=== PATIENT | female | born 1955 | race African-American/Black ===

== ENCOUNTER 2016-08-12 13:37 | Emergency (ER) ==
[2016-08-12 13:53] VITALS: BP 189/73
[2016-08-12] MEDS ORDERED: TYLENOL PO ONE (14:20)
--- NOTE | 2016-08-12 14:24 | PROVIDER DOCUMENTATION ---
Addendum entered and electronically signed by Brie Johnson PA 08/12/16 19 :11: Additional Progress - ADDITIONAL PLAN OF CARE/RESULTS Additional Progress/Plan/Lab Results: Vital Signs Temp Pulse Resp BP Pulse Ox 08/12/16 13:49 100.3 F H 103 H 20 189/73 98 No Known Allergies Allergy (Verified 05/05/16 19:27) Aspirin 81 mg PO DAILY 07/16/13 Digoxin 125 mcg PO DAILY 07/16/13 Lisinopril 10 mg PO DAILY #30 tablet 07/16/13 Metformin HCl [Metformin HCl ER] 750 mg PO DAILY 07/16/13 Diltiazem HCl [Diltiazem ER] 1 cap PO DAILY 01/10/15 Metoprolol [Lopressor] 50 mg PO DAILY 01/10/15 Ondansetron Odt [Zofran 8Mg Odt] 8 mg PO Q8H PRN PRN #20 tablet 08/12/16 Oseltamivir [Tamiflu] 75 mg PO DAILY #10 capsule 08/12/16 Laboratory 08/12/16 13:50 Influenza A (Rapid) POSITIVE A Influenza B (Rapid) NEGATIVE Orders Category Date Time Status CHEST-2 VIEWS [RAD] Stat Exams 08/12/16 14:[address] Stat Lab 08/12/16 13:50 Completed Acetaminophen [Tylenol] Med 08/12/16 14:20 Discontinued 1,000 mg PO NOW ONE Original Note: HPI-General Adult - General Source: patient - History of Present Illness -Gen Adult Nature of Presenting Problems: patient is a 60 y/o F that presents to the ER with 24 hours of fever, cough, sore throat, and body aches. Patient denies n/v/d, earache. Location of Pain/Injury: reports: generalized Pain Radiation: reports: no radiation Quality of Pain: reports: aching Severity: reports: mild, moderate Onset/Duration: reports: gradual, 24 hours ago Timing: reports: still present, getting worse Context/Activities at Onset: reports: none Modifying Factors: improves with: nothing Associated Symptoms: reports: cough, EENT symptoms, fever/chills, muscle aches. denies: diarrhea, nausea, rash, shortness of breath, vomiting Similar Symptoms Previously?: No Recently seen or treated by another doctor?: No <Glen Sandhu - Last Filed: 08/12/16 14:21> <ElizabethBriesha Pritchett - Last Filed: 08/12/16 14:37> - General Chief Complaint: Cold Symptoms Stated Complaint: COLD SX Time Seen by Provider: 08/12/16 14:08 Allergies/Adverse Reactions: Patient Allergies Allergy/AdvReac Type Severity Reaction Status Date / Time No Known Allergies Allergy Verified 05/05/16 19:27 Home Medications: Aspirin 81 mg PO DAILY 07/16/13 Digoxin 125 mcg PO DAILY 07/16/13 Metformin HCl [Metformin HCl ER] 750 mg PO DAILY 07/16/13 Diltiazem HCl [Diltiazem ER] 1 cap PO DAILY 01/10/15 Metoprolol [Lopressor] 50 mg PO DAILY 01/10/15 Review of Systems - Adult - REVIEW OF SYSTEMS - ADULT Constitutional: reports: chills, fever Eyes: denies: decreased vision, blurred vision, double vision Ears, Nose, Mouth & Throat: reports: sinus problem, throat pain. denies: ear pain Cardiovascular: denies: chest pain, orthopnea, palpitations Respiratory: reports: cough. denies: shortness of breath, wheezing Gastrointestinal: denies: abdominal pain, diarrhea, nausea, vomiting Genitourinary: denies: dysuria, frequency, hematuria Musculoskeletal: reports: muscle aches. denies: joint swelling Integumentary: reports: no symptoms reported Neurological: reports: no symptoms reported Psychiatric: reports: no symptoms reported Endocrine: reports: no symptoms reported Hematologic/Lymphatic: reports: no symptoms reported Allergic/Immunologic: reports: no symptoms reported All Other Systems: Reviewed and Negative <Glen Sandhu - Last Filed: 08/12/16 14:21> Past History - Adult - PAST MEDICAL HISTORY-ADULT Review of Records: reports: Old Records Reviewed, Nursing Assessment Review, Medications Reviewed Cardiovascular: reports: arrhythmia, CHF, HTN Gastrointestinal: reports: GERD Endocrine/Immune: reports: Diabetes - PRIOR SURGERIES/PROCEDURES Surgical/Procedure History: reports: hysterectomy (partial) - IMMUNIZATION STATUS Childhood Immunizations: See Nurse Assessment Flu Vaccine: See Nurse Assessment - FAMILY HISTORY Family History: reviewed, not pertinent - SOCIAL HISTORY Smoking: non-smoker Living Situation: family <Glen Sandhu - Last Filed: 08/12/16 14:21> Physical Exam-General - PHYSICAL EXAM-ADULT Initial Vital Signs Reviewed: Yes - CONSTITUTIONAL General Appearance: alert, no apparent distress - EYES Eyes: PERRL/EOMI, pink conjunctivae - HEAD, EARS, NOSE, MOUTH & THROAT HENMT: normocephalic/atraumatic, moist mucous membranes, normal ENT inspection, TMs normal, pharynx normal - NECK Neck: non-tender, full range of motion, normal inspection - RESPIRATORY Respiratory: chest non-tender, lungs clear, normal breath sounds, no respiratory distress, no accessory muscle use - CARDIOVASCULAR Cardiovascular: normal peripheral pulses, regular rate, rhythm, no murmur - GASTROINTESTINAL (ABDOMEN) Abdominal Exam: normal bowel sounds, non tender, soft, no organomegaly, no pulsatile mass - MUSCULOSKELETAL Extremity: normal range of motion, normal inspection, no pedal edema - SKIN Integumentary: normal color, warm/dry - NEUROLOGIC Neurologic: grossly normal, no motor/sensory deficits - PSYCHIATRIC Psych/Mental Status: normal mood/affect, normal thought content, normal thought process, oriented x 3 <Glen Sandhu - Last Filed: 08/12/16 14:21> Departure <Glen Sandhu - Last Filed: 08/12/16 14:21> - Departure Time of Disposition Order: 14:36 Certified Medical Emergency: Emergent <Brie Johnson - Last Filed: 08/12/16 14:37> - Departure DIAGNOSIS: Influenza A Disposition: HOME 01 Condition: Stable Additional Instructions: Tylenol and motrin for pain and fever ED Follow Up Instructions: You have been treated by a care provider in the Emergency Department. These instructions are being provided to you so you can have an understanding of how to care for yourself upon discharge. Upon discharge from the Emergency Department, you are responsible for making arrangements for follow-up care by a physician of your choice. Take all prescribed medications as directed. Return to the Emergency Department immediately for any new or worsening symptoms. You may call the Physician Referral phone number at [phone] to obtain a list of Physicians who are taking new patients. Prescriptions: Oseltamivir [Tamiflu] 75 mg PO DAILY #10 capsule Ondansetron Odt [Zofran 8Mg Odt] 8 mg PO Q8H PRN PRN #20 tablet PRN Reason: Nausea Attestation - Scribe Verification/Attestation Scribe:: Glen Sandhu Acting as Scribe for:: Brie Johnson Scribe documention review:: This chart was documented by a scribe and accurately reflects the service the provider performed and the decisions made by the provider. - Physician/ Mid-level Attestation Patient care was provided by Mid-level provider (ETHNIC [employer]IGINS TEACHER/PA):: Yes Mid-level provider:: Brie Johnson Mid-level documentation review:: The Mid-level provider documentation, treatment plan and medical decision making was reviewed by the physician who agrees with all treatment and medical decision making by the P. <Glen Sandhu - Last Filed: 08/12/16 14:21> Physician Attestation
--- NOTE | 2016-08-12 16:00 | Diag Imaging Result Document ---
PROCEDURE NAME: CHEST-2 VIEWS - 08/12/2016 CHEST, 2 VIEWS: COMPARISON: 02/16/2016. FINDINGS: Heart size is within normal limits. Inspiration is mildly shallow. There is mild prominence of lower lung markings, and there is apparent mild peribronchial cuffing, which may relate to bronchitis. There is no consolidation, pleural effusion, or pneumothorax identified. There is thoracic spondylosis noted. IMPRESSION: Mildly shallow inspiration. Possible bronchitis. No discrete pneumonia.
== END 2016-08-12 14:45 | disposition home or self-care (01) ==
LOC: P.ED 13:37
DX: J11.1 Influenza due to unidentified influenza virus with other respiratory manifestations (principal); R50.9 Fever, unspecified; R05 Cough; J02.9 Acute pharyngitis, unspecified; M79.1 Myalgia; I50.9 Heart failure, unspecified; I10 Essential (primary) hypertension; E11.9 Type 2 diabetes mellitus without complications; Z79.82 Long term (current) use of aspirin; Z79.899 Other long term (current) drug therapy
CPT/HCPCS: 71020; 87804; 99283